=== PATIENT | male | born 1960 | race Caucasian/White ===

== ENCOUNTER 2024-05-24 23:38 | Emergency (ER) | payer BC, SELFPAY ==
--- NOTE | 2024-05-24 23:30 | RT.EKG_ITS ---
APPROVED REPORT Exam: Resting ECG Reason for Exam: fall Patient Location: E HR:97 bpm ECG Measurements Heart Rate 97 AXIS NJ 133 P 31 QRSd 85 QRS 52 QT 378 T -10 QTc 480 Conclusion Sinus rhythm...normal P axis, V-rate 60- 99
[2024-05-24 23:43] VITALS: BP 136/73; PULSE 108; PULSE 109; RESP 26; O2SAT 100
[2024-05-24 23:44] VITALS: BP 136/73; PULSE 102; PULSE 98; RESP 17; RESP 21; TEMP 36.8; O2SAT 98
[2024-05-24 23:50] VITALS: PULSE 95; RESP 21
[2024-05-24 23:52] VITALS: BP 105/60; PULSE 96; PULSE 98; RESP 25; O2SAT 99
[2024-05-25] VITALS (13 sets, daily range): BP systolic 107–130; BP diastolic 51–64; PULSE 89–94; RESP 21–31; TEMP 36.4–37.1; O2SAT 81–100
--- NOTE | 2024-05-25 | DI.CT_ITS ---
Exam(s) CT CHEST/ABD/PEL W EXAM: CT CHEST/ABD/PEL W CLINICAL HISTORY: fall, metastatic cancer, head lac, echymoss L flan. TECHNIQUE: Imaging Protocol: Axial computed tomography images with coronal and sagittal reformatted images were created and reviewed CONTRAST MATERIAL: Intravenous: Omnipaque 350 Contrast volume:100 ml Oral: None COMPARISON: No exams were available for comparison FINDINGS: CHEST: LUNGS: There are multiple metastatic nodules evident in both lungs ranging up to 2 cm size. There ar e small bilateral pleural effusions. No pneumothorax. No findings in the trachea and mainstem bronc hi.. MEDIASTINUM: No evidence of acute sternal fracture or mediastinal hematoma. No hilar nor mediastinal adenopathy. No supraclavicular nor axillary adenopathy. CARDIAC: Heart size is normal. There is no pericardial effusion.Caliber of the thoracic aorta is wit hin normal limits. OSSEOUS: Diffuse sclerotic metastatic disease is seen throughout all the bones of the chest including all the ribs, sternal, and vertebral bodies. No obvious acute fractures evident in the thoracic sumit tebral bodies. There is vertebroplasty cement evident in L1, L2, and L4 vertebral bodies and there i s a significant height loss of L1 vertebral body, approximately 60 percent, age indeterminate. Mild posterior bulging of the posterior L1 cortex level without prominent canal compromise. ABDOMEN: There is no ascites. No evidence of bowel wall nor mesenteric hematomas. LIVER: No laceration. However, there are multiple small lesions in liver measuring up to 1.5 cm size , suspicious for metastatic disease given that these do not have the appearance of simple cysts and g iven the other findings described above. There are no dilated intrahepatic ducts. GALLBLADDER/BILIARY: No obvious gallbladder pathology. CBD is not dilated. PANCREAS: No evidence of pancreatic mass nor dilatation of the pancreatic duct. SPLEEN: Spleen size is upper normal, measuring 13 cm. No laceration evident. However, there are mul tiple small hypodensities also noted in the spleen which may be metastatic given the other findings. These do not have the appearance of simple cysts the splenic and portal veins are patent ADRENALS: There are no significant adrenal masses. KIDNEYS: No lacerations. No calculi nor hydronephrosis. No solid renal masses. No cysts evident. ABDOMINAL AORTA: Abdominal aorta is not enlarged. LYMPH NODES: There is no retroperitoneal nor paraaortic adenopathy. ABDOMINAL WALL: No evidence of significant anterior abdominal wall nor inguinal hernia. GI: There is no evidence of bowel obstruction. PELVIS: LYMPH NODES: There are few abnormally enlarged lymph nodes in the right iliac chain which appear path ologic. None on the left side. There is no inguinal adenopathy. GI: No evidence of appendicitis.Redundant sigmoid. No significant diverticular disease. URINARY BLADDER: Small density on the dependent wall of the bladder. Probably intraluminal contrast. REPRODUCTIVE: Is not enlarged. Seminal vesicles unremarkable. There are a few abnormally enlarged p athologic appearing lymph nodes just medial to the right obturator internus muscle. OSSEOUS: There is diffuse sclerotic metastatic involvement of all bones of the pelvis but without acu te fractures evident. No fractures evident IMPRESSION: 1. There are multiple bilateral pulmonary nodules consistent with metastatic lung nodules and there a re small bilateral pleural effusions. 2. There is evidence of metastatic disease with multiple lesions seen in the liver and spleen as well as right iliac and obturator adenopathy. 3. There is diffuse cirrhotic metastatic disease throughout all the bones of the chest, abdomen, and pelvis. There is vertebroplasty cement evident in the L1, L2, and L4 vertebral bodies with height lo ss of L1 noted, age indeterminate but probably not acute. Correlation with site of tenderness recomm ended. 4. No obvious acute trauma sequelae. RADIATION DOSE DELIVERED: 1,331.56mGy.cm Total DLP DATA REPOSITORY: All CT scans at this facility are submitted to the National Radiology Data Registry (NRDR) Dose Index Registry (DIR) with the [employer] ([employer]). RADIATION OPTIMIZATION: All CT scans at this facility use at least one of these dose optimization te chniques: automated exposure control; mA and/or kV adjustment per patient size (includes targeted exa ms where dose is matched to clinical indication); or iterative reconstruction.
--- NOTE | 2024-05-25 | DI.CT_ITS ---
Exam(s) CT HEAD CERVICAL SPINE WO EXAM: CT HEAD CERVICAL SPINE WO CLINICAL HISTORY: fall, metastatic cancer, head lac, echymoss L flan. TECHNIQUE: Imaging Protocol: Axial computed tomography images with coronal and sagittal reformatted images were created and reviewed COMPARISON: No exams were available for comparison FINDINGS: BRAIN: There are no skull fractures nor fluid in the visualized paranasal sinuses. There is right-sided acute subdural hematoma with maximum thickness of 1.6 cm. This appears to be beard perimposed upon a more chronic appearing 4 mm thick ipsilateral subdural collection. Mild local mass effect noted. There is no shift of midline structures. Ventricles are not enlarged or shifted and there is no blood within the ventricular system nor within the basal cisterns. CERVICAL SPINE: There are diffuse sclerotic metastases throughout all of the cervical and included upper 2 thoracic v ertebral bodies, this involving both anterior and posterior osseous elements of all of these vertebra e. There is no evidence of fracture nor listhesis. No significant prevertebral soft tissue swelling. Minimal degenerative changes in the facet joints There is no significant facet joint malalignment. IMPRESSION: Acute right-sided subdural hematoma with maximum thickness 1.6 cm. The appearance here is probably t hat of acute subdural hematoma superimposed upona smaller more chronic appearing ipsilateral subdural hematoma No evidence of cervical spine fracture, malalignment, nor acute compromise of the cervical spinal can al. However, there is diffuse sclerotic metastatic disease involving all the cervical vertebrae as w ell as the visualized upper thoracic vertebrae. RADIATION DOSE DELIVERED: 1,443.06mGy.cm Total DLP DATA REPOSITORY: All CT scans at this facility are submitted to the National Radiology Data Registry (NRDR) Dose Index Registry (DIR) with the [employer] ([employer]). RADIATION OPTIMIZATION: All CT scans at this facility use at least one of these dose optimization te chniques: automated exposure control; mA and/or kV adjustment per patient size (includes targeted exa ms where dose is matched to clinical indication); or iterative reconstruction.
--- NOTE | 2024-05-25 00:10 | ED.GENADUL_ITS ---
Discharge Plan Disposition Patient Disposition: Transfer-Acute Inpatient Care Specific Acute Inpt Facility: [facility] Condition: Critical Discharge Details Clinical Impression: Subdural hemorrhage, Syncope, Thrombocytopenia, Metastatic cancer Primary Care Provider: Unknown,Unknown ED Provider: Maci Mojica Home Meds and New Rx's Prescriptions: No Action amlodipine 10 mg tablet 10 mg PO DAILY dexamethasone 2 mg tablet 2 mg PO DAILY metoprolol tartrate 25 mg tablet 25 mg PO BID mirtazapine 30 mg tablet 30 mg PO QHS morphine 15 mg tablet extended release 15 mg PO ONCE morphine 30 mg capsule, ER multiphase 24 hr 30 mg PO QHS potassium chloride [K-Tab] 20 mEq tablet extended release 20 meq PO DAILY spironolactone [Aldactone] 50 mg tablet 50 mg PO BID hydromorphone [Dilaudid] 4 mg tablet 4 mg PO Q4H PRN morphine 15 mg tablet 15 mg PO Q4H PRN ondansetron 8 mg tablet,disintegrating 8 mg PO Q8H PRN Rx Instructions: 1st dose 1-2 hr before radiation prochlorperazine maleate 10 mg tablet 10 mg PO Q6H PRN sildenafil [Viagra] 50 mg tablet 50 mg PO DAILY PRN Rx Instructions: administer 30 minutes to 4 hours before activity HPI General Mode of arrival: EMS . Date/Time Provider Initiated Documentation: 05/25/24 00:00 . Limitations to Documentation: altered mental status . Information obtained by: patient, family and EMS . HPI Narrative: 63yo M with hx metastatic bone cancer, regular platelet transfusions, presenting with head laceration after fall from standing. Dressing applied by EMS. Upon transfer from EMS stretcher to ED stretcher patient had unresponsive episode; reportedly felt the need to have a bowel movement, then became unresponsive/staring for about 30 seconds. Upon regaining consciousness he was alert and able to recall the events of the evening though is uncertain of the da te. Reports ETOH consumptions this evening, tripped on his flip flops and fell to the side striking his head. Did not lose consciousness. Remembers EMS arrival. Nausated, no vomiting. No significant pain including no headache. Abdomen has been progressively getting more distended over the past month, but not acutely today or this week. He is otherwise in his usual state of health with no fevers, chills, rash, chest pain, shortness of breath, abdominal pain, numbness, tingling, weakness, vertigo, vision changes, or other concerns. Related Data Home Medications Medication Instructions Recorded Confirmed amlodipine 10 mg tablet 10 mg PO DAILY 05/24/24 05/24/24 dexamethasone 2 mg tablet 2 mg PO DAILY 05/24/24 05/24/24 hydromorphone 4 mg tablet 4 mg PO Q4H PRN 05/24/24 05/24/24 (Dilaudid) metoprolol tartrate 25 mg tablet 25 mg PO BID 05/24/24 05/24/24 mirtazapine 30 mg tablet 30 mg PO QHS 05/24/24 05/24/24 morphine 15 mg immediate release 15 mg PO Q4H PRN 05/24/24 05/24/24 tablet morphine 15 mg tablet,extended 15 mg PO ONCE 05/24/24 05/24/24 release morphine 30 mg capsule,extended 30 mg PO QHS 05/24/24 05/24/24 release 24 hr multiphase ondansetron 8 mg disintegrating 8 mg PO Q8H PRN 05/24/24 05/24/24 tablet potassium chloride 20 mEq 20 meq PO DAILY 05/24/24 05/24/24 tablet,extended release (K-Tab) prochlorperazine maleate 10 mg 10 mg PO Q6H PRN 05/24/24 05/24/24 tablet sildenafil 50 mg tablet (Viagra) 50 mg PO DAILY PRN 05/24/24 05/24/24 spironolactone 50 mg tablet 50 mg PO BID 05/24/24 05/24/24 (Aldactone) Allergies Allergy/AdvReac Type Severity Reaction Status Date / Time No Known Allergies Allergy Unverified 05/24/24 23:50 General Stated Complaint: Fall/Non TraumaCriteria ZAHIDA: 2 Review of Systems Narrative: see HPI Exam Narrative Exam Narrative: GENERAL: Alert. SKIN: Warm and well perfused. HEAD: ~4.5cm laceration to left posterior scalp, venous oozing. Dressing removed with substantial amount of blood. Facial bones without deformities or tenderness. EYES: PERRL. No scleral icterus or conjunctival injection. Extraocular muscles intact without nystagmus or diplopia. MOUTH: Moist mucus membranes without blood. NECK: Trachea midline. No discolorations or edema. CV: Regular rate and rhythm, Normal s1 and s2. PV: Radial pulses 2+ bilaterally and symmetric. Dorsalis pedis pulses 2+ bilaterally and symmetric. 2+ capillary refill. No extremity edema. CHEST: No abrasions or ecchymosis. Chest symmetric with respirations. No chest wall tenderness. . Lungs are clear to auscultation bilaterally. ABDOMEN: No ecchymosis or abrasions. Soft, nondistended, nontender. BACK: No abrasions, skin openings. Spine without bony tenderness, no step offs. Echymosis left posterior flank. Scattered pettechiae. PELVIC: Pelvis stable, nontender to lateral compression : Normal external genitalia without blood at meatus. No ecchymosis or edema. MSK: No gross deformities or discolorations or lesions. Neuro: ? GCS 14 (Oriented to place and person, not time).? PERRL.? EOMI.? Fluent speech, no dysarthria. Motor- 5/5 strength symmetric bilateral upper and lower extremities Sensation- ?Intact to light touch and symmetric multiple dermatomes including upper and lower extremities Coordination- No dysmetria on finger to nose CRANIAL NERVES: II: Pupils equal and reactive, III, IV, : EOM intact, no gaze preference or deviation, no nystagmus. V: normal sensation in V1, V2, and V3 segments bilaterally VII: no asymmetry, no nasolabial fold flattening VIII: normal hearing to speech IX, X: normal palatal elevation, no uvular deviation XI: not tested XII: midline tongue protrusion Course Vital Signs Vital signs: Vital Signs Temperature 36.8 C 05/24/24 23:44 Pulse 98 H 05/24/24 23:44 Respiratory Rate 21 05/24/24 23:44 Blood Pressure 136/73 05/24/24 23:44 Pulse Oximetry 98 05/24/24 23:44 Temperature 36.8 C 05/24/24 23:44 Temperature Source Temporal Artery Scan 05/24/24 23:44 Pulse 98 H 05/24/24 23:44 Respiratory Rate 21 05/24/24 23:44 Respiratory Effort Normal 05/24/24 23:58 Blood Pressure 136/73 05/24/24 23:44 Blood Pressure Position Supine 05/24/24 23:44 Pulse Oximetry 98 05/24/24 23:44 Oxygen Delivery Method Room Air 05/24/24 23:44 Oxygen Flow Rate 0 07/04/24 23:44 Medical Decision Making 63yo M with hx metastatic bone cancer, regular platelet transfusions, presenting with head laceration after fall from standing. Upon transfer from EMS stretcher to ED stretcher patient had unresponsive episode; reportedly felt the need to have a bowel movement, then became unresponsive/staring for about 30 seconds. No abnormal movements noted. On my arrival to the room patient alert, able to answer questions, GCS 14. Initial BP 130's/70's. Posterior scalp laceration, dressing heavily saturated with blood. Left flank with faint echymosis, scattered pettechaie on back. Episode on arrival most consistent with sycnope. As pt is likely caogulopathic with large amount of bleeding already, will give 2 units emergent release blood. Zofran for nausea on arrival. EKG NSR, no St segment or T wave abnormalitities to suggest occlusive HI. -Transferred emergently to CT; CT head with SDH on my view, agree with radiology read below. Will give 2g keppra for ppx, elevate HOB. Hypertonic saline and mannitol to bedside; would start with hypertonic if necessary. -Notified by lab of critical platelets at 16, regrettably will take 6+ hours to get platelets here. [facility] transfer center contacted for pt transfer. -On return to the room patient remains alert, nausea resolved, wtih a non-focal neurologic exam, no indication of herniation/increased ICP. Findings discussed with patient, discussed code status/advance directives; full code. -Discussed wtih [facility], accepted ED to ED under Dr. Minor. -Labs resulted as below, Hg 7.7, CMP with marked hyponatremia at 123 (unknown chronicity), lactate elevated at 7.2. ETOH + at 57. Troponin negative. -On reassessment pt remains HDS with reassuring neuro exam. Reports back pain (chronic) which is worsening; on morphine at home and overdue for dose. Given 4mg IV morphine here. -DART not flying; will send by ground. Working on transport. -With thrombocytopenia he is at risk to clinically decompensate and require intubation, however patient with stable neuro exam for the past two hours here in the ED. Considered intubating prior to transport but with his stable exam here and anticipated clinical course not necessarily requiring intubation risk outweighs benefit. He does not have an anatomically difficulty airway and is appropriate for transport with psychologist research assistant. Discussed with patient risks/benefits and he is in agreement. Transferred via [place]. Stable neurologic exam and vital signs on departure. Imaging Data Radiologic Study: Imaging: CT Scan Radiologist's impression: IMPRESSION: 1. Right-sided subdural hematomas. IMPRESSION: 1. No acute fracture. 2. Diffuse sclerotic metastasis. IMPRESSION: Findings of metastatic malignancy including numerous bilateral pulmonary nodules mild bilateral axillary lymphadenopathy and diffuse osseous sclerosis. Small bilateral pleural effusions also noted. No acute posttraumatic changes evident. IMPRESSION: Findings of metastatic malignancy including multiple small lesions in the liver and spleen, diffuse osseous sclerosis mild right iliac lymphadenopathy. No acute posttraumatic changes evident. Lab Data Lab results reviewed: Yes I reviewed the patient's lab results. Labs: Laboratory Tests Range/Units 05/24/24 00:04 WBC (4.4-10.8) 10^3/uL 7.96 RBC (4.36-5.78) 10^6/uL 2.44 L Hgb (13.5-17.5) g/dL 7.7 L Hct (40.0-50.0) % 23.0 L MCV (80-95) fL 94 MCH (27.0-33.0) pg 31.6 MCHC (32.0-36.0) % 33.5 RDW (11.8-14.1) % 18.1 H Plt Count (130-400) 10^3/uL 16 L* MPV (8.0-11.0) fL 10.6 Immature Gran % See Differential Neutrophils % % 50.0 Band Neutrophils % % 5 Lymphocytes % % 17.0 Atypical Lymphs % % 4 Monocytes % % 20.0 Eosinophils % % 1.0 Basophils % % 0.0 Metamyelocytes % 2 Myelocytes % 1 Nucleated RBC % (0.0-0.3) % 11.0 H Absolute Neutrophils (1.2-6.7) 10^3/uL 4.38 Absolute Lymphocytes (1.2-3.4) 10^3/uL 1.67 Absolute Monocytes (0.1-0.8) 10^3/uL 1.59 H Absolute Eosinophils (0.0-0.7) 10^3/uL 0.08 Absolute Basophils (0.0-0.2) 10^3/uL 0.00 RBC Morphology See Below Polychromasia Present Hypochromasia 1+ PT (9.1-11.1) sec 10.9 INR (0.9-1.1) 1.1 APTT (23.6-32.8) sec 24.1 VBG Lactate (0.6-1.4) mmol/L 7.2 H* Sodium (136-145) mmol/L 123 L* Potassium (3.5-5.1) mmol/L 4.3 Chloride (98-107) mmol/L 88 L Carbon Dioxide (21.0-32.0) mmol/L 19.4 L Anion Gap (3-11) mmol/L 15.6 H BUN (7-18) mg/dL 8 Creatinine (0.70-1.30) mg/dL 0.7 Est GFR (CKD-EPI 2020) (mL/min/1.73m2) 103.53 Glucose (74-106) mg/dL 297 H Calcium (8.5-10.1) mg/dL 8.2 L Magnesium (1.8-2.4) mg/dL 2.3 Total Bilirubin (0.2-1.0) mg/dL 0.80 AST (15-37) U/L 128 H ALT (16-63) U/L 19 Alkaline Phosphatase (46-116) U/L 409 H Troponin I (< or =60) ng/L < 50 Total Protein (6.4-8.2) g/dL 6.7 Albumin (3.4-5.0) g/dL 2.2 L Amylase (25-115) U/L 25 Lipase (16-77) U/L 15 L Ethyl Alcohol (<10) mg/dL 57.5 H ABO/Rh O Positive Blood Type Recheck Cancelled Antibody Screen NEGATIVE Crossmatch See Detail Quality:SDOH Health Related Social Needs: No Data to Display Critical Care Time Critical Care Time Critical Care Time: Yes Total Critical Care Time: 46 Attestation: Due to a high probability of clinically significant, life threatening deterioration, the patient required my highest level of preparedness to intervene emergently and I personally spent this critical care time directly and personally managing the patient. This critical care time included obtaining a history; examining the patient; pulse oximetry; ordering and review of studies; arranging urgent treatment with development of a management plan; evaluation of patient's response to treatment; frequent reassessment; and, discussions with other providers. This critical care time was performed to assess and manage the high probability of imminent, life-threatening deterioration that could result in multi-organ failure. It was exclusive of separately billable procedures and treating other patients? PFSH All Active Problems (Updated 05/25/24 @ 01:25 by Maci Mojica MD) Metastatic cancer (Acute) Thrombocytopenia (Chronic) Syncope (Chronic) Subdural hemorrhage (Acute) Social History Smoking risk assessment performed?: No
[2024-05-25] MEDS: Ondansetron 4 MG/2 ML VIAL IVP (00:11)
[2024-05-25 00:12] LABS: Abs Immature Grans 1.25 10^3/uL (0.0-0.06); HGB 7.7 g/dL (13.5-17.5); Lactate 7.2 mmol/L (0.6-1.4); MCH 31.6 pg (27.0-33.0); MCHC 33.5 % (32.0-36.0); MCV 94 fL (80-95); MPV 10.6 fL (8.0-11.0); RBC 2.44 10^6/uL (4.36-5.78); RDW 18.1 % (11.8-14.1); RDW-SD 60.6 fL; WBC 7.96 10^3/uL (4.4-10.8)
[2024-05-25 00:19] LABS: INR 1.1 (0.9-1.1); PTT Activated 24.1 sec (23.6-32.8); Prothrombin Time 10.9 sec (9.1-11.1)
[2024-05-25 00:29] LABS: Platelet Count 16 10^3/uL (130-400)
[2024-05-25 00:36] LABS: Absolute Lymphocyte Count 1.67 10^3/uL (1.2-3.4); Absolute Neutrophil Count 4.38 10^3/uL (1.2-6.7); Atypical Lymphocytes % 4 %; Bands % 5 %
[2024-05-25 00:37] LABS: ALT 19 U/L (16-63); AST 128 U/L (15-37); Absolute Eosinophil Count 0.08 10^3/uL (0.0-0.7); Absolute Monocyte Count 1.59 10^3/uL (0.1-0.8); Albumin 2.2 g/dL (3.4-5.0); Alkaline Phosphatase 409 U/L (46-116); Amylase 25 U/L (25-115); Anion Gap 15.6 mmol/L (3-11); BUN 8 mg/dL (7-18); CO2 19.4 mmol/L (21.0-32.0); CREATININE 0.7 mg/dL (0.70-1.30); Calcium 8.2 mg/dL (8.5-10.1); Chloride 88 mmol/L (98-107); ETHANOL BLOOD 57.5 mg/dL (<10); Estimated GFR 103.53 (mL/min/1.73m2); Glucose 297 mg/dL (74-106); Lipase 15 U/L (16-77); Magnesium 2.3 mg/dL (1.8-2.4); Metamyelocytes % 2; Myelocytes % 1; Potassium 4.3 mmol/L (3.5-5.1); Total Protein 6.7 g/dL (6.4-8.2)
[2024-05-25 00:38] LABS: Diff Comment Manual Differential; Hypochromasia 1+; Polychromasia Present
[2024-05-25 00:41] LABS: Troponin I < 50 ng/L (< or =60)
[2024-05-25 00:42] LABS: Sodium 123 mmol/L (136-145)
[2024-05-25] MEDS: Omnipaque 350 MG/ML 100 ML BTL IJ (00:42)
--- NOTE | 2024-05-25 00:52 | DI.VRAD_ITS ---
PROCEDURE INFORMATION: Exam: CT Head Without Contrast Exam date and time: 05/25/2024 12:18 AM Age: 63 years old Clinical indication: Stroke-like symptoms; Other: Fall, head laceration TECHNIQUE: Imaging protocol: Computed tomography of the head without contrast. Total images: 2226 Radiation optimization: All CT scans at this facility use at least one of these dose optimization techniques: automated exposure control; mA and/or kV adjustment per patient size (includes targeted exams where dose is matched to clinical indication); or iterative reconstruction. Other technique: STROKE PROTOCOL was implemented. COMPARISON: No relevant prior studies available. FINDINGS: Brain: Right-sided posterior supratentorial subdural collection with a fluid hemorrhage level (possibly acute on chronic) and having a maximal width of 1.6 cm. Additional hyperdense subdural blood more anteriorly with a maximal width 6 mm. No edema. No midline shift. Cerebral ventricles: No significant hydrocephalus. Basal cisterns are patent. Paranasal sinuses: No mucosal thickening or fluid levels. Mastoid air cells: No mastoid effusion. Bones: Unremarkable. No acute fracture. Soft tissues: Scalp aby left. IMPRESSION: 1. Right-sided subdural hematomas. 2. THIS REPORT CONTAINS FINDINGS THAT MAY BE CRITICAL TO PATIENT CARE. The findings were verbally communicated via telephone conference with LOW FIERRO at 12:51 AM EDT on 05/25/2024. The findings were acknowledged and understood. ASSESSMENT: ASPECTS ([place] Stroke Program Early CT Score) is 10. PROCEDURE INFORMATION: Exam: CT Cervical Spine Without Contrast Exam date and time: 05/25/2024 12:18 AM Age: 63 years old Clinical indication: Stroke-like symptoms; Other: Fall, head laceration TECHNIQUE: Imaging protocol: Computed tomography of the cervical spine without contrast. Radiation optimization: All CT scans at this facility use at least one of these dose optimization techniques: automated exposure control; mA and/or kV adjustment per patient size (includes targeted exams where dose is matched to clinical indication); or iterative reconstruction. COMPARISON: No relevant prior studies available. FINDINGS: Bones: Heterogeneous sclerosis throughout the cervical spine and visualized ribs. No acute fracture. No subluxation. Lungs: Visualized lungs are unremarkable. Soft tissues: Partially visualized effusions. IMPRESSION: 1. No acute fracture. 2. Diffuse sclerotic metastasis. Dictated and Authenticated by: James Blum MD. Ordering:HERMINIO Lux MD
[2024-05-25] MEDS: levETIRAcetam 2,000 MG in Normal Saline 100 ML 400 MG IVPB (00:53)
--- NOTE | 2024-05-25 01:09 | DI.VRAD_ITS ---
PROCEDURE INFORMATION: Exam: CT Chest With Contrast; Diagnostic Exam date and time: 05/25/2024 12:28 AM Age: 63 years old Clinical indication: Other: Fall, metastatic CA, head laceration, ecchymosis left flank TECHNIQUE: Imaging protocol: Diagnostic computed tomography of the chest with contrast. Radiation optimization: All CT scans at this facility use at least one of these dose optimization techniques: automated exposure control; mA and/or kV adjustment per patient size (includes targeted exams where dose is matched to clinical indication); or iterative reconstruction. Contrast material: OMNIPAQUE 350; Contrast volume: 100 ml; Contrast route: INTRAVENOUS (IV); COMPARISON: CT HEAD CERVICAL SPINE WO 05/25/2024 12:18 AM FINDINGS: Lungs: Numerous bilateral diffuse pulmonary nodules compatible with metastatic malignancy. Largest nodules measure approximately 2 cm in the lower lungs. Partial compressive atelectasis in the dependent portions of the lower lobes. Pleural spaces: Small bilateral pleural effusions. No pneumothorax. Heart: Unremarkable. No cardiomegaly. No pericardial effusion. Lymph nodes: Mild bilateral axillary lymphadenopathy. Vasculature: Unremarkable. No aortic aneurysm. Bones/joints: Diffuse heterogeneous osseous sclerosis compatible with metastatic malignancy. No acute fracture evident in the chest. Soft tissues: Unremarkable. IMPRESSION: Findings of metastatic malignancy including numerous bilateral pulmonary nodules mild bilateral axillary lymphadenopathy and diffuse osseous sclerosis. Small bilateral pleural effusions also noted. No acute posttraumatic changes evident. PROCEDURE INFORMATION: Exam: CT Abdomen And Pelvis With Contrast Exam date and time: 05/25/2024 12:28 AM Age: 63 years old Clinical indication: Other: Fall, metastatic CA, head laceration, ecchymosis left flank TECHNIQUE: Imaging protocol: Computed tomography of the abdomen and pelvis with contrast. Radiation optimization: All CT scans at this facility use at least one of these dose optimization techniques: automated exposure control; mA and/or kV adjustment per patient size (includes targeted exams where dose is matched to clinical indication); or iterative reconstruction. Contrast material: OMNIPAQUE 350; Contrast volume: 100 ml; Contrast route: INTRAVENOUS (IV); COMPARISON: No relevant prior studies available. FINDINGS: Liver: Multiple small hypodense lesions throughout the liver measuring up to 14 mm diameter and highly concerning for metastatic disease. Gallbladder and biliary ducts: Normal. No calcified stones. No ductal dilation. Pancreas: Normal. No ductal dilation. Spleen: Scattered small hypodense lesions throughout the spleen highly concerning for metastatic disease, largest measuring up to 14 mm. Adrenal glands: Normal. No mass. Kidneys and ureters: Normal. No hydronephrosis. Stomach and bowel: Unremarkable. No obstruction. No mucosal thickening. Appendix: No evidence of appendicitis. Intraperitoneal space: Unremarkable. No free air. No significant fluid collection. Vasculature: Unremarkable. No abdominal aortic aneurysm. Lymph nodes: Mild right iliac lymphadenopathy Urinary bladder: Unremarkable as visualized. Reproductive: Unremarkable as visualized. Bones/joints: Diffuse heterogeneous osseous sclerosis compatible with metastatic malignancy. Chronic appearing compression of L1 and evidence of prior vertebroplasty at L1, L2 and L4. No acute fracture. Soft tissues: Unremarkable. IMPRESSION: Findings of metastatic malignancy including multiple small lesions in the liver and spleen, diffuse osseous sclerosis mild right iliac lymphadenopathy. No acute posttraumatic changes evident. Dictated and Authenticated by: Derian Queen MD. Ordering:HERMINIO Lux MD
[2024-05-25] MEDS: MORPHine 4 MG/ML SYR (01:25)
[2024-05-25 01:38] LABS: Bilirubin Negative (Negative); Blood Trace-intact (Negative); Clarity Clear (Clear); Glucose Negative (Negative); Ketones 15 mg/dL (Negative); Leukocyte Esterase Negative (Negative); Nitrite Negative (Negative)
[2024-05-25] MEDS: MORPHine 4 MG/ML SYR IVP (01:52)
--- NOTE | 2024-05-25 02:13 | W.ED.PROC ---
Date of service: 05/25/24 Time of Service: 00:00 Procedures Laceration Laceration 1: Site: scalp Side (If applicable): left Size (cm): 4.5 Description: linear Depth: involves muscle layer Local Anesthetic: Lidocaine 2% Amount of anesthesia used (mL): 5 Pre-repair: irrigated extensively Skin layer closed with: other (aby) Number of sutures: 12 Medical Decision Making ~4.5cm linear laceration to posterior scalp, persistent venous oozing with large volume blood loss prior to arrival. Irrigated extensively and closed with aby for hydrodynamic stability prior to transfer to CT. Quality:[facility] Health Related Social Needs: No Data to Display
[2024-05-25 02:24] LABS: Bacteria Rare HPF (Negative); C & S Indicated? No; Casts 0-2 Hyaline LPF (Negative); Crystals Negative HPF (Negative); Epithelial Cells Negative HPF (Negative); Mucus Negative (Negative); RBC 0-2 HPF (0-2)
--- NOTE | 2024-05-25 07:53 | NUR.NOTE ---
Only salvageable clothing item was pt's belt. Placed in bag and labeled with patient sticker. Lives in [facility] and may not return to pick it up. In dirt utility room.
== END 2024-05-25 02:10 | disposition short-term general hospital (02) ==
PROVIDERS: Emergency Provider Student in an Organized Health Care Education/Training Program
DX: S06.5XAA Traumatic subdural hemorrhage with loss of consciousness status unknown, initial encounter (principal); R55 Syncope and collapse; D69.6 Thrombocytopenia, unspecified; C79.9 Secondary malignant neoplasm of unspecified site
CPT/HCPCS: 36415; 51702; 74177; 80053; 83690; 86850; 86900; 86901; 86920; 93005; 96365; 96375; 99291; 70450; 71260; 72125; 80320; 81003; 81015; 82150; 83605; 83735; 84484; 85025; 85610; 85730; 93010; J1953; J2270; J2405; J3490; P9016